=== PATIENT | male | born 1990 | race Caucasian/White ===

== ENCOUNTER 2021-11-26 17:42 | Emergency (ER) | payer BC | END 2021-11-26 21:32 | disposition home or self-care (01) | LOC: JD.ED 17:42 | DX: F41.9 Anxiety disorder, unspecified (principal); R00.2 Palpitations; F17.210 Nicotine dependence, cigarettes, uncomplicated; Z88.0 Allergy status to penicillin | CPT/HCPCS: 36415; 80053; 84443; 85025; 85379; 93005; 99284 ==